=== PATIENT | male | born 1980 | race Caucasian/White ===

== ENCOUNTER 2025-01-07 07:37 | Day surgery (SDC) | payer OTHER, SELFPAY ==
[2024-12-02 10:15] VITALS: BMI 24.0
[2024-12-29 13:13] VITALS: BMI 32.5
[2025-01-07 08:30] VITALS: BMI 32.2
[2025-01-07 08:31] VITALS: BP 122/89; PULSE 88; RESP 18; TEMP 36.4; O2SAT 98
[2025-01-07] MEDS: LACTATED RINGERS 1,000 ML 150 ML IV CONT (08:41)
--- NOTE | 2025-01-07 08:41 | WPDANESEPPF ---
Anes - Initial Pre Proc Eval Procedure: Operation Date: 01/07/25 09:30 Proposed Procedures p Screening Colonoscopy - Alvin Chan MD Date/Time: 01/07/25 08:41 Surgeon: Alvin Chan MD Pre Op Diagnosis: Screening Patient Data Age: 44 Gender: M Height: 1.85 m Weight: 110.8 kg Last Vital Signs Temp 36.4 C 01/07/25 08:31 Pulse 88 01/07/25 08:31 Resp 18 01/07/25 08:31 BP 122/89 01/07/25 08:31 Pulse Ox 98 01/07/25 08:31 O2 Del Method Room Air 01/07/25 08:31 Allergies Allergy/AdvReac Type Severity Reaction Status Date / Time No Known Allergies Allergy Verified 12/29/24 13:10 Home Medications ?Medication ?Instructions ?Recorded ?Confirmed ?Type bupropion HCl 300 mg 24 hr tablet, 300 mg PO QAM #90 tabs 11/14/24 01/07/25 Rx extended release finasteride 1 mg tablet 1 mg PO DAILY #90 tabs 11/14/24 01/07/25 Rx cetirizine 10 mg tablet (All Day 10 mg PO DAILY PRN allergy symptoms 12/29/24 01/07/25 History Allergy (cetirizine)) multivitamin 1 tablet PO DAILY 12/29/24 01/07/25 History Patient hx anesthesia problems: none Family hx anesthesia problems: none Results Review: All pre-operative results and documents have been reviewed as part of the pre-operative evaluation. [facility] Surgical History Surgical History History of lymph node biopsy cat scratch disease 1991 Family History Family History Father No problems noted. Mother No problems noted. Social History Social History Smoking packs per day: 0.75 Smoking cigarettes per day: 15.0 Years smoked: 17 Smoking pack-years: 12.75 Smoking status: Former smoker Additional smoking assessment comments: QUIT 2022 Alcohol intake: former Alcohol use details: RARELY Substance use: never Substance use type: does not use Do You Feel Safe in your Home?: Yes Lack of Transportation: No Lack of Food: Never True Current Housing: I Have Housing Concerned About Future Housing: No Difficulty Paying Gas/Electric Bills: No Difficulty Paying for Meds: No Currently Unemployed: No Education: Master's Degree or Higher Living arrangements: with family Occupation/Education: occupation Gender identity (if verbalized by the patient): Male Sexual Orientation (if Verbalized by the Patient): Straight or Heterosexual Spiritual care concerns: No Anes - Eval Final PreProcedure Day of Procedure 01/07/25 08:41 Patient weight: normal Heart: regular rate and rhythm Lungs: clear to auscultation Airway: Mallampati scale class II Neurological: alert and oriented Last oral intake: >/= 8 hours ASA classification: II Emergent: no Anesthetic plan: proceed Anesthesia type and monitoring: monitored anesthesia care and standard monitoring Results Review: All pre-operative results and documents have been reviewed as part of the pre-operative evaluation. Informed Consent: The patient's anesthetic plan and its attendant risks and benefits were discussed with the patient/family/POA. Questions were solicited and answers provided to the satisfaction of the patient/family/POA.
--- NOTE | 2025-01-07 09:04 | PM.IMHP ---
H&P: HPI History of Present Illness Date/Time: 01/07/25 09:04 Chief Complaint: Screening colonoscopy Narrative: This is the patient's first colonoscopy. There are no GI symptoms and there is no family history of colorectal cancer. Review of Systems Review of Systems: All systems reviewed & are unremarkable except as noted in HPI and below PMFSH Surgical History Surgical History History of lymph node biopsy cat scratch disease 1991 Family History Family History Father No problems noted. Mother No problems noted. Social History Social History Smoking packs per day: 0.75 Smoking cigarettes per day: 15.0 Years smoked: 17 Smoking pack-years: 12.75 Smoking status: Former smoker Additional smoking assessment comments: QUIT 2022 Alcohol intake: former Alcohol use details: RARELY Substance use: never Substance use type: does not use Do You Feel Safe in your Home?: Yes Lack of Transportation: No Lack of Food: Never True Current Housing: I Have Housing Concerned About Future Housing: No Difficulty Paying Gas/Electric Bills: No Difficulty Paying for Meds: No Currently Unemployed: No Education: Master's Degree or Higher Living arrangements: with family Occupation/Education: occupation Gender identity (if verbalized by the patient): Male Sexual Orientation (if Verbalized by the Patient): Straight or Heterosexual Spiritual care concerns: No Meds Home Medications and Allergies Home Medications ?Medication ?Instructions ?Recorded ?Confirmed ?Type bupropion HCl 300 mg 24 hr tablet, 300 mg PO QAM #90 tabs 11/14/24 01/07/25 Rx extended release finasteride 1 mg tablet 1 mg PO DAILY #90 tabs 11/14/24 01/07/25 Rx cetirizine 10 mg tablet (All Day 10 mg PO DAILY PRN allergy symptoms 12/29/24 01/07/25 History Allergy (cetirizine)) multivitamin 1 tablet PO DAILY 12/29/24 01/07/25 History Allergies Allergy/AdvReac Type Severity Reaction Status Date / Time No Known Allergies Allergy Verified 12/29/24 13:10 Vital Signs Vital Signs - 24 hr 01/07/25 08:31 Temperature 97.6 F Pulse Rate 88 Respiratory Rate 18 Blood Pressure 122/89 Pulse Oximetry 98 Oxygen Delivery Room Air Exam Const: General: cooperative and healthy appearing Resp: Effort & Inspection: normal respiratory effort and able to speak in complete sentences Auscultation: clear to auscultation bilaterally Cardio: Rate: regular rate Rhythm: regular rhythm GI: Inspection: normal to inspection GI Palp: No No hepatosplenomegaly present Auscultation: normal bowel sounds Rectal Exam: deferred Skin: General skin exam: normal color Psych: Appearance: grossly normal Mental Status: mental status grossly normal Assessment and Plan Assessment and plan (1) Encounter for screening colonoscopy: Code(s): Z12.11 - Encounter for screening for malignant neoplasm of colon Status: Acute Assessment and Plan: The patient is deemed a good candidate for the procedure. Consent signed. Will proceed.
--- NOTE | 2025-01-07 09:10 | WPDANESEPPF ---
Anes - Initial Pre Proc Eval Procedure: Operation Date: 01/07/25 09:30 Proposed Procedures p Screening Colonoscopy - Alvin Chan MD Date/Time: 01/07/25 09:10 Surgeon: Alvin Chan MD Pre Op Diagnosis: Screening Patient Data Age: 44 Gender: M Height: 1.85 m Weight: 110.8 kg Last Vital Signs Temp 36.4 C 01/07/25 08:31 Pulse 88 01/07/25 08:31 Resp 18 01/07/25 08:31 BP 122/89 01/07/25 08:31 Pulse Ox 98 01/07/25 08:31 O2 Del Method Room Air 01/07/25 08:31 Allergies Allergy/AdvReac Type Severity Reaction Status Date / Time No Known Allergies Allergy Verified 12/29/24 13:10 Home Medications ?Medication ?Instructions ?Recorded ?Confirmed ?Type bupropion HCl 300 mg 24 hr tablet, 300 mg PO QAM #90 tabs 11/14/24 01/07/25 Rx extended release finasteride 1 mg tablet 1 mg PO DAILY #90 tabs 11/14/24 01/07/25 Rx cetirizine 10 mg tablet (All Day 10 mg PO DAILY PRN allergy symptoms 12/29/24 01/07/25 History Allergy (cetirizine)) multivitamin 1 tablet PO DAILY 12/29/24 01/07/25 History Patient hx anesthesia problems: none Family hx anesthesia problems: none Prior surgeries: Lymph node removal anterior neck Results Review: All pre-operative results and documents have been reviewed as part of the pre-operative evaluation. [facility] Surgical History Surgical History History of lymph node biopsy cat scratch disease 1991 Family History Family History Father No problems noted. Mother No problems noted. Social History Social History Smoking packs per day: 0.75 Smoking cigarettes per day: 15.0 Years smoked: 17 Smoking pack-years: 12.75 Smoking status: Former smoker Additional smoking assessment comments: QUIT 2022 Alcohol intake: former Alcohol use details: RARELY Substance use: never Substance use type: does not use Do You Feel Safe in your Home?: Yes Lack of Transportation: No Lack of Food: Never True Current Housing: I Have Housing Concerned About Future Housing: No Difficulty Paying Gas/Electric Bills: No Difficulty Paying for Meds: No Currently Unemployed: No Education: Master's Degree or Higher Living arrangements: with family Occupation/Education: occupation Gender identity (if verbalized by the patient): Male Sexual Orientation (if Verbalized by the Patient): Straight or Heterosexual Spiritual care concerns: No Anes - Eval Final PreProcedure Day of Procedure 01/07/25 09:10 Heart: regular rate and rhythm Lungs: clear to auscultation Airway: Mallampati scale class II Neurological: alert and oriented ASA classification: II Emergent: no Anesthetic plan: proceed Anesthesia type and monitoring: monitored anesthesia care Results Review: All pre-operative results and documents have been reviewed as part of the pre-operative evaluation. Informed Consent: The patient's anesthetic plan and its attendant risks and benefits were discussed with the patient/family/POA. Questions were solicited and answers provided to the satisfaction of the patient/family/POA.
[2025-01-07 10:03] VITALS: BP 110/78; PULSE 68; RESP 18; O2SAT 98
[2025-01-07 10:13] VITALS: BP 123/86; PULSE 75; RESP 16; O2SAT 100
[2025-01-07 10:23] VITALS: BP 105/83; PULSE 72; RESP 16; O2SAT 100
== END 2025-01-07 10:28 | disposition home or self-care (01) ==
PROVIDERS: PCP Family Medicine; Referring Provider Family Medicine; Visit Provider Internal Medicine Gastroenterology
PROC: 0DJD8ZZ Inspection of Lower Intestinal Tract, Via Natural or Artificial Opening Endoscopic (ICD-10-PCS; CPT 45378; principal; 2025-01-07 09:30)
DX: Z12.11 Encounter for screening for malignant neoplasm of colon (principal); D12.2 Benign neoplasm of ascending colon
CPT/HCPCS: 45385

== ENCOUNTER 2025-01-09 08:22 | Outpatient (NON) | payer OTHER, SELFPAY ==
--- NOTE | 2025-01-09 | S_PTH ---
PATIENT: Jean Lombardi LOC: [facility]AB #:[id number] AGE/SX: 44/M ROOM: RE01/09/[address]: Alvin Chan MD : 1980 BED: DIS: 01/09/2025 SPEC #: [id number] RECD: 01/10/25 08:50 STATUS: MARA REQ #: [id number] CHANDNI: 01/09/25 00:[address]: Alvin Chan DEPT: [facility] Surgical RECD BY: Gilbert Cleaning ENTERED: 01/10/25 08:51 SP TYPE: Surgical OTHR DR: Fantasma Tavera MD Tissues: A - Colon Polypectomy Procedures: Hematoxylin and Eosin Stain Gross and Microscopic Level 4
== END 2025-01-09 08:23 | disposition home or self-care (01) ==
PROVIDERS: PCP Family Medicine; Visit Provider Internal Medicine Gastroenterology
DX: Z12.11 Encounter for screening for malignant neoplasm of colon (principal); D12.2 Benign neoplasm of ascending colon
CPT/HCPCS: 88305